=== PATIENT | female | born 1995 | race Caucasian/White ===

== ENCOUNTER 2021-04-19 16:40 | Emergency (ER) | payer BC, OTHER ==
[~2021-04-19] VITALS: Ht 157.5 cm; Wt 96.2 kg
== END 2021-04-19 20:57 | disposition home or self-care (01) ==
LOC: ED 16:40
DX: R10.32 Left lower quadrant pain (principal)
CPT/HCPCS: 76775; 76830; 76856; 81001; 84703; 99284-25

== ENCOUNTER 2021-07-30 19:05 | Emergency (ER) | payer OTHER, BC ==
[~2021-07-30] VITALS: Ht 157.5 cm; Wt 93.0 kg
== END 2021-07-30 21:55 | disposition home or self-care (01) ==
LOC: ED 19:05
DX: S06.0X0A Concussion without loss of consciousness, initial encounter (principal); W01.198A Fall on same level from slipping, tripping and stumbling with subsequent striking against other object, initial encounter; Y92.89 Other specified places as the place of occurrence of the external cause
CPT/HCPCS: 70450; 99283-25